=== PATIENT | male | born 1990 | race American Indian/Alaskan Native ===

== ENCOUNTER 2017-03-09 13:47 | Emergency (ER) | payer BC ==
[2017-03-09 13:57] VITALS: BMI 27.9
[2017-03-09 14:00] VITALS: TEMP 99.9; O2SAT 97
[2017-03-09] MEDS ORDERED: Sodium Chloride 0.9% 1,000 ML IV STA (14:22)
--- NOTE | 2017-03-09 14:34 | ED PDOC ---
Arrival/HPI - General Historian: Patient - History of Present Illness Time/Duration: < week Symptom Onset: Sudden Context: Walking - General Chief Complaint: Dizziness/Lightheaded Time Seen by Provider: 03/09/17 13:56 - History of Present Illness Narrative History of Present Illness (Text): 03/09/17 14:27 26 yo M w no significant past medical history presents with complaint of intermittent weakness and dizziness x 1 week. Patient states dizziness is usually sudden-onset exacerbated by walking and head movement. Patient admits to frontal pressure-like headache, pre-syncope 2 days ago x 1, no recurrence. patient states he has not been drinking well for the past 2 days because he is "not feeling well." Patient denies CP, SOB, MADERA, abd pain, n/v/d/c, fevers, chills. ([place]) Past Medical History - Provider Review Nursing Documentation Reviewed: Yes - Travel History Have you recently traveled outside [place] w/in the past 3 mons?: No - Past History Past History: No Previous - Infectious Disease Hx of Infectious Diseases: None - Tetanus Immunization Tetanus Immunization: Unknown - Past Medical History Past Medical History: No Previous - Psychiatric Hx Depression: No Hx Emotional Abuse: No Hx Physical Abuse: No Hx Substance Use: No - Past Surgical History Past Surgical History: No Previous - Suicidal Assessment Feels Threatened In Home Enviroment: No Family/Social History - Physician Review Nursing Documentation Reviewed: Yes Family/Social History: Unknown Family HX Smoking Status: Never Smoked Hx Alcohol Use: No Hx Substance Use: No Hx Substance Use Treatment: No Allergies/Home Meds Allergies/Adverse Reactions: Allergies No Known Allergies Allergy (Verified 03/09/17 13:57) Review of Systems - Review of Systems Constitutional: absent: Fatigue, Fevers, Night Sweats Eyes: absent: Vision Changes ENT: absent: Tinnitus Respiratory: Cough (nonproductive). absent: SOB, Sputum Cardiovascular: absent: Chest Pain, Palpitations, Calf Pain Gastrointestinal: absent: Abdominal Pain, Constipation, Diarrhea, Nausea, Vomiting, Appetite Changes, Hematochezia, Hematemesis Genitourinary Male: absent: Dysuria Skin: absent: Skin Lesions Neurological: Headache (frontal), Dizziness. absent: Gait Changes, Seizure Physical Exam Vital Signs Reviewed: Yes Temperature: Afebrile Blood Pressure: Normal Pulse: Regular Respiratory Rate: Normal Appearance: Positive for: Well-Appearing, Non-Toxic, Comfortable Pain Distress: None Mental Status: Positive for: Alert and Oriented X 3 Finger Stick Blood Glucose: 88 - Systems Exam Head: Present: Atraumatic, Normocephalic Pupils: Present: PERRL. No: Sluggish Extroacular Muscles: No: Gaze Palsy Conjunctiva: No: Injected Ears: Present: Normal, NORMAL TM. No: Erythema, TM Bulging, Fluid Mouth: Present: Moist Mucous Membranes Nose (Internal): Present: Boggy Neck: Present: Normal Range of Motion. No: Meningeal Signs, JVD Respiratory/Chest: Present: Clear to Auscultation, Good Air Exchange. No: Respiratory Distress, Accessory Muscle Use Cardiovascular: Present: Regular Rate and Rhythm, Normal S1, S2. No: Murmurs Abdomen: Present: Normal Bowel Sounds. No: Tenderness, Distention, Peritoneal Signs Upper Extremity: Present: Normal Inspection, NORMAL PULSES, Capillary Refill < 2s. No: Cyanosis, Edema Lower Extremity: Present: Normal Inspection, NORMAL PULSES, Capillary Refill < 2 s. No: Edema, CALF TENDERNESS Neurological: Present: GCS=15, CN II-XII Intact, Speech Normal Skin: Present: Warm, Dry, Rashes, Normal Color Psychiatric: Present: Alert, Oriented x 3, Normal Insight, Normal Concentration Vital Signs Temp Pulse Resp BP Pulse Ox 03/09/17 15:37 79 18 113/69 97 03/09/17 13:57 99.9 F H 89 16 115/71 97 Medical Decision Making Reassessment Condition: Re-examined, Improved - Lab Interpretations I have reviewed the lab results: Yes Interpretation: All labs normal - RAD Interpretation Mail Sorter: Radiologist - EKG Interpretation Interpreted by ED Physician: Yes Type: 12 lead EKG ED Course and Treatment: 03/09/17 15:26 Patient seen and examined with resident Came up with treatment and disposition plan with resident Patient with lightheadedness, near syncopal sensation, dizziness. Patient states that he feels dehydrated and his symptoms usually come on with hot outside. On physical examination patient has no acute findings, no focal neurological deficits, hints exam negative. (Wallace Sparrow) 03/09/17 14:38 26 yo M w no significant past medical history presents complaining of intermittent weakness and dizziness while walking and moving head. Labs, EKG, CT head. Devinne, NS 1L bolus. 03/09/17 15:54 Patient re-evaluated, states he feels significantly better. Denies dizziness, headache, states he feels well. Patient is comfortable laying in bed, in no distress. Patient can stand from seated position without dizziness, weakness. Ambulating without difficulty, denying dizziness, weakness. 03/09/17 16:07 CT head Radiologist read - normal CT head. 03/09/17 17:18 Patient re-evaluated. Denies any residual symptoms. Discussed clinical diagnosis and all questions answered. Instructed to followup with PMD or [facility] clinic, cardiology, neurology and ENT. Patient is agreeable and expresses understanding. ([place]) - Lab Interpretations Lab Results: 03/09/17 14:23 03/09/17 14:23 Lab Results 03/09/17 14:23: WBC 5.2, RBC 4.71, Hgb 14.7, Hct 41.9 L, MCV 89.0, MCH 31.2, MCHC 35.1, RDW 12.4, Plt Count 205, MPV 12.1 H, Gran % 47.0 L, Lymph % (Auto) 38.5 H, [place] % (Auto) 10.9 H, Eos % (Auto) 3.2, Baso % (Auto) 0.4, Gran # 2.46, Lymph # 2.0, [place] # 0.6, Eos # 0.2, Baso # 0.02, Sodium 136, Potassium 4.2, Chloride 97 L, Carbon Dioxide 29, Anion Gap 14, BUN 13, Creatinine 1.2, Est GFR ( Amer) > 60, Est GFR (Non-Af Amer) > 60, Random Glucose 82, Calcium 9.7 , Total Bilirubin 0.8, AST 32, ALT 37, Alkaline Phosphatase 63, Total Protein 8.3, Albumin 4.6, Globulin 3.8, Albumin/Globulin Ratio 1.2 - RAD Interpretation Narrative RAD Interpretations (Text): 03/09/17 16:07 CT head without contrast - normal ([place]) Radiology Orders: 03/09/17 14:22 HEAD W/O CONTRAST [CT] Stat - EKG Interpretation EKG Interpretation (Text): 03/09/17 16:08 NSR 72bpm, normal axis, normal EKG ([place]) - Medication Orders Current Medication Orders: Discontinued Medications Sodium Chloride (Sodium Chloride 0.9%) 1,000 mls @ 999 mls/hr IV .Q1H1M STA Stop: 03/09/17 15:22 Last Admin: 03/09/17 14:29 Dose: 999 MLS/HR eMAR Start Stop Document 03/09/17 14:29 SE (Rec: 03/09/17 14:29 SE [id number]) Intravenous Solution Start Date 03/09/17 Start Time 14:29 Meclizine HCl (Antivert) 25 mg PO STAT STA Stop: 03/09/17 14:23 Last Admin: 03/09/17 14:31 Dose: 25 MG Disposition/Present on Arrival - Present on Arrival Any Indicators Present on Arrival: No History of DVT/PE: No History of Uncontrolled Diabetes: No Urinary Catheter: No History of Decub. Ulcer: No History Surgical Site Infection Following: None - Disposition Have Diagnosis and Disposition been Completed?: Yes Disposition Time: 16:09 Patient Plan: Discharge - Disposition Diagnosis: Vertigo, Dizziness Disposition: HOME/ ROUTINE Condition: STABLE Discharge Instructions (ExitCare): Vertigo (ED), Dizziness (ED) Additional Instructions: Please followup with your primary care physician or the [facility] clinic within 1-3 days. Please followup with Cardiology (Dr. Hollins or Taryn), neurology (Dr. Arnie Sorensen), and ear/nose/throat specialist (Dr. Xavier) within 3 days. Prescriptions: Meclizine [Meclizine*] 25 mg PO Q8 #15 tab Referrals: PCP,ANDREW [Primary Care Provider] - Follow up with [place] [facility] [place] - Follow up with primary Ludin Hollins MD [Staff Provider] - Follow up with primary Rebel Centeno MD [Staff Provider] - Follow up with primary Arnie Sorensen MD [Staff Provider] - Follow up with primary Clemente Xavier DO [Staff Provider] - Follow up with primary
[2017-03-09 14:41] LABS: ADD MANUAL DIFF? NO
[2017-03-09 14:46] LABS: BASO # 0.02 K/mm3 (0.0-2.0); BASO % 0.4 % (0.0-3.0); EOS # 0.2 (0.0-0.7); EOS % 3.2 % (1.5-5.0); GRAN # 2.46 (1.4-6.5); HEMATOCRIT 41.9 % (42.0-52.0); LYMPH % 38.5 % (22.0-35.0); MEAN CORPUSCULAR HEMOGLOBIN 31.2 pg (25.0-35.0); MEAN CORPUSCULAR HGB CONC 35.1 g/dl (31.0-37.0); MEAN PLATELET VOLUME 12.1 fl (7.0-11.0); MONO # 0.6 (0.1-0.6); MONO % 10.9 % (1.0-6.0); PLATELET COUNT 205 10^3/uL (120.0-450.0); RED CELL DISTRIBUTION WIDTH 12.4 % (11.5-14.5); WHITE BLOOD COUNT 5.2 10^3/ul (4.5-11.0)
[2017-03-09 14:53] LABS: ALB/GLOB RATIO 1.2 (1.1-1.8); ALKALINE PHOSPHATASE 63 U/L (38-133); ALT/SGPT 37 U/L (7-56); AST/SGOT 32 U/L (15-59); BILIRUBIN,TOTAL 0.8 mg/dL (0.2-1.3); BLOOD UREA NITROGEN 13 mg/dL (7-21); CALCIUM 9.7 mg/dL (8.4-10.5); CARBON DIOXIDE 29 mmol/L (21-33); CHLORIDE 97 mmol/L (98-107); GFR AFRICAN-AMERICAN > 60; GLUCOSE,RANDOM 82 mg/dL (70-110); POTASSIUM 4.2 mmol/L (3.6-5.0); SODIUM 136 mmol/L (132-148); TOTAL PROTEIN 8.3 g/dL (5.8-8.3)
[2017-03-09 15:37] VITALS: BP 113/69; PULSE 79; RESP 18
--- NOTE | 2017-03-09 15:38 | CT ---
PROCEDURE: CT HEAD WITHOUT CONTRAST. HISTORY: r/o mass COMPARISON: None available. TECHNIQUE: Axial computed tomography images were obtained through the head/brain without intravenous contrast. Radiation dose: Total exam DLP = 768 mGy-cm. This CT exam was performed using one or more of the following dose reduction techniques: Automated exposure control, adjustment of the mA and/or kV according to patient size, and/or use of iterative reconstruction technique. FINDINGS: HEMORRHAGE: No intracranial hemorrhage. BRAIN: No mass effect or edema. No atrophy or chronic microvascular ischemic changes. VENTRICLES: Unremarkable. No hydrocephalus. CALVARIUM: Unremarkable. PARANASAL SINUSES: Unremarkable as visualized. No significant inflammatory changes. MASTOID AIR CELLS: Unremarkable as visualized. No inflammatory changes. OTHER FINDINGS: None. IMPRESSION: Normal CT of the Head.
--- NOTE | 2017-03-10 11:14 | CARD ---
APPROVED REPORT EKG Measurement Heart [id number] <Conclusion> Normal sinus rhythm Normal ECG
== END 2017-03-09 17:08 | disposition home or self-care (01) ==
LOC: ED 13:47
DX: R42 Dizziness and giddiness (principal)
CPT/HCPCS: 70450; 80053; 85025; 93005; 99285; J7040

== ENCOUNTER 2017-06-12 11:01 | Emergency (ER) | payer BC ==
[2017-06-12 11:01] VITALS: BMI 27.9
[2017-06-12 11:07] VITALS: RESP 18
--- NOTE | 2017-06-12 11:23 | ED PDOC ---
Arrival/HPI - General Chief Complaint: GI Problem Time Seen by Provider: 06/12/17 11:02 Historian: Patient - History of Present Illness Narrative History of Present Illness (Text): 06/12/17 11:13 A 26 year old male, with no significant past medical history, is presenting to the emergency department with complaints of vomiting since 02:00 am this morning. The patient notes he has had 5 episodes of vomiting and denies any blood in vomit. The patient denies any diarrhea, fever, chills, abdominal pain, dysuria, or any other complaints at this time. PMD: Ramos Time/Duration: Other (02:00 am this morning) Symptom Onset: Sudden Symptom Course: Unchanged Activities at Onset: Rest Context: Home Past Medical History - Provider Review Nursing Documentation Reviewed: Yes - Past History Past History: No Previous - Infectious Disease Hx of Infectious Diseases: None - Tetanus Immunization Tetanus Immunization: Unknown - Past Medical History Past Medical History: No Previous - Psychiatric Hx Depression: No Hx Emotional Abuse: No Hx Physical Abuse: No Hx Substance Use: No - Past Surgical History Past Surgical History: No Previous - Suicidal Assessment Feels Threatened In Home Enviroment: No Family/Social History - Physician Review Nursing Documentation Reviewed: Yes Family/Social History: Unknown Family HX Smoking Status: Never Smoked Hx Alcohol Use: No Hx Substance Use: No Hx Substance Use Treatment: No Allergies/Home Meds Allergies/Adverse Reactions: Allergies No Known Allergies Allergy (Verified 06/12/17 11:07) Review of Systems - Physician Review All systems were reviewed & negative as marked: Yes - Review of Systems Constitutional: absent: Fevers Gastrointestinal: Nausea, Vomiting. absent: Diarrhea Genitourinary Male: absent: Dysuria Physical Exam - Physical Exam Narrative Physical Exam (Text): 06/12/17 11:13 Constitutional: No acute distress. Head: Normocephalic. Atraumatic. Eyes: PERRL. ENT: Moist mucous membranes. Neck: Supple. Cardiovascular: Regular rate. Chest: No tenderness. Respiratory: Clear to auscultation bilaterally. GI: Soft. Nontender. Nondistended. Back: No CVA tenderness. Musculoskeletal: No tenderness or swelling of extremities. Skin: No rash. Neurologic: Alert, no focal deficit. Vital Signs Reviewed: Yes Vital Signs Temp Pulse Resp BP Pulse Ox 06/12/17 11:05 98.2 F 76 18 124/74 97 Temperature: Afebrile Blood Pressure: Normal Pulse: Regular Respiratory Rate: Normal Appearance: Positive for: Well-Appearing, Non-Toxic, Comfortable Pain Distress: None Mental Status: Positive for: Alert and Oriented X 3 Medical Decision Making ED Course and Treatment: 06/12/17 11:13 Impression: 26 year old male with complaints of vomiting without abdominal pain or tenderness, normal vital signs, and well in appearance. Plan: -- Zofran -- Reassess and disposition Prior Visits: Notes and results from previous visits were reviewed. On 03/09/17 patient came in complaining of weakness and dizziness. Patient was discharged 03/09/17. Progress Notes: Patient with no vomiting episodes in ER. PO challenged. Patient states he can follow up with PMD this week. Instructed to return to the ER for worsening pain , fever, intractible vomiting, or any other problem. - Medication Orders Current Medication Orders: Discontinued Medications Ondansetron HCl (Zofran Odt) 8 mg PO STAT STA Stop: 06/12/17 11:19 Last Admin: 06/12/17 11:48 Dose: 8 mg - Scribe Statement The provider has reviewed the documentation as recorded by the Frank Sanchez Provider Scribe Attestation: All medical record entries made by the Frank were at my direction and personally dictated by me. I have reviewed the chart and agree that the record accurately reflects my personal performance of the history, physical exam, medical decision making, and the department course for this patient. I have also personally directed, reviewed, and agree with the discharge instructions and disposition. Disposition/Present on Arrival - Present on Arrival Any Indicators Present on Arrival: No History of DVT/PE: No History of Uncontrolled Diabetes: No Urinary Catheter: No History of Decub. Ulcer: No History Surgical Site Infection Following: None - Disposition Have Diagnosis and Disposition been Completed?: Yes Diagnosis: Vomiting Disposition: HOME/ ROUTINE Disposition Time: 13:12 Patient Plan: Discharge Patient Problems: Current Active Problems Problem Status Onset Vomiting Acute Condition: STABLE Discharge Instructions (ExitCare): Acute Nausea and Vomiting (ED) Prescriptions: Ondansetron ODT [Zofran ODT] 4 mg PO Q8 #12 odt Referrals: Flavia Ramos DO [Primary Care Provider] - Follow up with primary Forms: WORK NOTE
[2017-06-12 13:23] VITALS: BP 117/76; PULSE 78; TEMP 98; O2SAT 99
== END 2017-06-12 13:24 | disposition home or self-care (01) ==
LOC: ED 11:01
DX: R11.10 Vomiting, unspecified (principal)

== ENCOUNTER 2017-07-09 16:31 | Emergency (ER) | payer BC ==
[2017-07-09 16:31] VITALS: BMI 27.9
[2017-07-09 16:40] VITALS: BP 124/73; PULSE 92; RESP 16; TEMP 99.5; O2SAT 99
[2017-07-09] MEDS ORDERED: Sodium Chloride 0.9% 1,000 ML IV STA (17:00)
--- NOTE | 2017-07-09 17:04 | ED PDOC ---
Arrival/HPI - General Chief Complaint: Abdominal Pain Time Seen by Provider: 07/09/17 16:40 Historian: Patient - History of Present Illness Narrative History of Present Illness (Text): 07/09/17 17:01 27-year-old male presents today with a 6 day history of intermittent abdominal pain and frequent watery diarrhea. Patient denies any recent travel. Denies any sick contacts. Denies nausea or vomiting. Denies fevers or chills. Denies urinary symptoms. Denies dizziness or weakness. Denies back pain. Denies chest pain or shortness of breath. Patient complaining of intermittent crampy abdominal pain. Patient states about a month ago he had nausea which resolved on its own. Time/Duration: Other (6 days) Symptom Onset: Gradual Symptom Course: Worsening Quality: Cramping Severity Level: 2 Past Medical History - Provider Review Nursing Documentation Reviewed: Yes - Travel History Have you recently traveled outside [place] w/in the past 3 mons?: No - Past History Past History: No Previous - Infectious Disease Hx of Infectious Diseases: None - Tetanus Immunization Tetanus Immunization: Unknown - Past Medical History Past Medical History: No Previous - Psychiatric Hx Depression: No Hx Emotional Abuse: No Hx Physical Abuse: No Hx Substance Use: No - Past Surgical History Past Surgical History: No Previous - Suicidal Assessment Feels Threatened In Home Enviroment: No Family/Social History - Physician Review Nursing Documentation Reviewed: Yes Family/Social History: Unknown Family HX Smoking Status: Never Smoked Hx Alcohol Use: No Hx Substance Use: No Hx Substance Use Treatment: No Allergies/Home Meds Allergies/Adverse Reactions: Allergies No Known Allergies Allergy (Verified 07/09/17 16:40) Home Medications: Home Meds Medication Instructions Recorded Confirmed No Known Home Med 07/09/17 07/09/17 Review of Systems - Review of Systems Constitutional: absent: Fatigue, Fevers Respiratory: absent: SOB, Cough Cardiovascular: absent: Chest Pain, Palpitations Gastrointestinal: Abdominal Pain, Diarrhea. absent: Nausea, Vomiting, Hematochezia, Hematemesis Genitourinary Male: absent: Dysuria, Frequency, Hematuria Musculoskeletal: absent: Arthralgias, Back Pain, Neck Pain Skin: absent: Rash, Pruritis Neurological: absent: Headache, Dizziness Psychiatric: absent: Anxiety, Depression Physical Exam Vital Signs Reviewed: Yes Vital Signs Temp Pulse Resp BP Pulse Ox 08/12/17 16:38 99.5 F 92 H 16 124/73 99 Temperature: Afebrile Blood Pressure: Normal Pulse: Regular Respiratory Rate: Normal Appearance: Positive for: Well-Appearing, Non-Toxic, Comfortable Pain Distress: None Mental Status: Positive for: Alert and Oriented X 3 - Systems Exam Head: Present: Atraumatic Mouth: Present: Moist Mucous Membranes Neck: Present: Normal Range of Motion Respiratory/Chest: Present: Clear to Auscultation Cardiovascular: Present: Regular Rate and Rhythm Abdomen: Present: Tenderness (minimal tenderness), Normal Bowel Sounds. No: Distention, Peritoneal Signs, Rebound, Guarding Upper Extremity: Present: Normal Inspection Lower Extremity: Present: Normal ROM Neurological: Present: GCS=15 Skin: Present: Warm, Dry, Normal Color. No: Rashes Psychiatric: Present: Alert, Oriented x 3 Medical Decision Making ED Course and Treatment: 07/09/17 17:03 Patient is nontoxic well appearing with stable vital signs presenting with diarrhea and abdominal pain 6 days NS iv bolus given CBC wnl CMP wnl Lipase wnl Urinalysis trace blood CAT scan: FINDINGS: Lower thorax: No acute findings. ABDOMEN: Liver: Unremarkable. No mass. Gallbladder and bile ducts: The gallbladder is contracted but otherwise normal. Pancreas: Unremarkable. No mass. No ductal dilation. Spleen: Unremarkable. No splenomegaly. Adrenals: Unremarkable. No mass. Kidneys and ureters: A simple cyst is identified in the patient's right kidney. Kidneys otherwise show no significant abnormalities. No hydronephrosis. Stomach and bowel: Slightly prominent fluid-filled loops of small and large intestine are identified without a clear transition area without significant dilatation. No mucosal thickening. Appendix: A normal appendix is identified. PELVIS: Bladder: Unremarkable. No mass. Reproductive: Unremarkable as visualized. ABDOMEN and PELVIS: Intraperitoneal space: Unremarkable. No free air. No significant fluid collection. Bones/joints: No acute fracture. No dislocation. Soft tissues: Unremarkable. Vasculature: Unremarkable. No abdominal aortic aneurysm. Lymph nodes: Unremarkable. No enlarged lymph nodes. IMPRESSION: Nonspecific fluid-filled bowel loops without a clear transition, possibly related to gastroenteritis, or a diarrheal-type illness. Please correlate clinically. No evidence for bowel herniation, bowel obstruction, colitis, appendicitis or diverticulitis. No gross ureteral stone or obstructive uropathy is visualized. Simple right renal cyst. Patient reassessment: pt in no distress. wants to go home. pt with GI symptoms x 6 days. will collect stool cultures. will d/c home with BRAT diet. Discussed all results with patient in depth. pt non toxic well appearing. no distress. stable vitals. Patient verbalizes understanding of discharge instructions and need for immediate followup. all aspects of this case were discussed the attending of record. Impression: Abdominal pain, diarrhea increase fluids BRAT DIET: Bananas, rice, apples, toast Follow up with the primary care physician within the next 2 days Follow up with the GI doctor within the next 2 days. return if symptoms worsen,persist or if new symptoms develop. - Lab Interpretations Lab Results: 07/09/17 17:15 07/09/17 17:15 Lab Results 07/09/17 17:15: WBC 7.5 D, RBC 4.92, Hgb 15.2, Hct 43.5, MCV 88.4, MCH 30.9, MCHC 34.9, RDW 12.5, Plt Count 227, MPV 11.2 H, Gran % 76.2 H, Lymph % (Auto) 15.7 L, [place] % (Auto) 5.3, Eos % (Auto) 2.7, Baso % (Auto) 0.1, Gran # 5.72, Lymph # 1.2, [place] # 0.4, Eos # 0.2, Baso # 0.01 07/09/17 17:15: Sodium 141, Potassium 4.1, Chloride 100, Carbon Dioxide 26, Anion Gap 19, BUN 13, Creatinine 1.1, Est GFR ( Amer) > 60, Est GFR (Non- Af Amer) > 60, Random Glucose 73, Calcium 10.0, Total Bilirubin 1.0, AST 29, ALT 30, Alkaline Phosphatase 72, Total Protein 8.4 H, Albumin 5.2 H, Globulin 3.3, Albumin/Globulin Ratio 1.6, Lipase 57 07/09/17 17:15: Urine Color Yellow, Urine Appearance Clear, Urine pH 6.0, Ur Specific [place] 1.025, Urine Protein Negative, Urine Glucose (UA) Negative, Urine Ketones Negative, Urine Blood Trace-intact H, Urine Nitrate Negative, Urine Bilirubin Negative, Urine Urobilinogen 0.2, Ur Leukocyte Esterase Negative , Urine RBC 1 - 3, Urine WBC 1 - 3, Ur Epithelial Cells 0 - 2 - RAD Interpretation Radiology Orders: 07/09/17 17:00 ABD & PELVIS IV CONTRAST ONLY [CT] Stat - Medication Orders Current Medication Orders: Discontinued Medications Sodium Chloride (Sodium Chloride 0.9%) 1,000 mls @ 999 mls/hr IV .Q1H1M STA Stop: 07/09/17 18:00 Last Admin: 07/09/17 17:17 Dose: 999 mls/hr Iohexol (Omnipaque 350 100 Ml) Confirm Administered Dose 350 mg .ROUTE .STK-MED ONE Stop: 07/09/17 18:04 Disposition/Present on Arrival - Present on Arrival Any Indicators Present on Arrival: No History of DVT/PE: No History of Uncontrolled Diabetes: No Urinary Catheter: No History of Decub. Ulcer: No History Surgical Site Infection Following: None - Disposition Have Diagnosis and Disposition been Completed?: Yes Diagnosis: Abdominal pain, Diarrhea Disposition: HOME/ ROUTINE Disposition Time: 19:43 Patient Plan: Discharge Condition: GOOD Discharge Instructions (ExitCare): Acute Diarrhea (ED), Acute Abdominal Pain ( ED) Additional Instructions: increase fluids BRAT DIET: Bananas, rice, apples, toast Follow up with the primary care physician within the next 2 days Follow up with the GI doctor within the next 2 days. return if symptoms worsen,persist or if new symptoms develop. Referrals: Betito Plummer MD [Staff Provider] - Follow up with primary Flavia Ramos DO [Family Provider] - Follow up with primary Forms: [facility] (Ukrainian), WORK NOTE
[2017-07-09 17:37] LABS: ALB/GLOB RATIO 1.6 (1.1-1.8); ALBUMIN 5.2 g/dL (3.0-4.8); ALT/SGPT 30 U/L (7-56); AST/SGOT 29 U/L (15-59); BLOOD UREA NITROGEN 13 mg/dL (7-21); GFR AFRICAN-AMERICAN > 60; GFR NON-AFRICAN AMERICAN > 60; LIPASE 57 U/L (23-300)
[2017-07-09 17:49] LABS: BASO # 0.01 K/mm3 (0.0-2.0); BASO % 0.1 % (0.0-3.0); EOS # 0.2 (0.0-0.7); EOS % 2.7 % (1.5-5.0); GRAN # 5.72 (1.4-6.5); GRAN % 76.2 % (50.0-68.0); HEMOGLOBIN 15.2 g/dL (14.0-18.0); LYMPH # 1.2 (1.2-3.4); LYMPH % 15.7 % (22.0-35.0); MEAN CELL VOLUME 88.4 fl (80.0-105.0); MEAN CORPUSCULAR HEMOGLOBIN 30.9 pg (25.0-35.0); MEAN CORPUSCULAR HGB CONC 34.9 g/dl (31.0-37.0); MEAN PLATELET VOLUME 11.2 fl (7.0-11.0); MONO # 0.4 (0.1-0.6); MONO % 5.3 % (1.0-6.0); PLATELET COUNT 227 10^3/uL (120.0-450.0); RBC 4.92 10^6/uL (3.5-6.1); RED CELL DISTRIBUTION WIDTH 12.5 % (11.5-14.5); URINE BILIRUBIN NEGATIVE (NEGATIVE); URINE BLOOD TRACE-INTACT (NEGATIVE); URINE GLUCOSE (UA) NEGATIVE (NEGATIVE); URINE LEUKOCYTE ESTERASE NEGATIVE Leu/uL (NEGATIVE); URINE NITRATE NEGATIVE (NEGATIVE); URINE PROTEIN NEGATIVE mg/dL (<30 mg/dL); URINE UROBILINOGEN 0.2 E.U./dL (<1 E.U./dL); WHITE BLOOD COUNT 7.5 10^3/ul (4.5-11.0)
[2017-07-09] MEDS ORDERED: Iohexol 350 MG/100 ML VIAL ONE (18:03)
[2017-07-09 18:04] LABS: URINE APPEARANCE CLEAR (CLEAR); URINE COLOR YELLOW (YELLOW)
[2017-07-09 19:02] LABS: URINE EPITHELIAL CELLS 0 - 2 /hpf (0-5)
--- NOTE | 2017-07-10 10:59 | CT ---
PROCEDURE: CT Abdomen and Pelvis with contrast HISTORY: abd pain/diarrhea COMPARISON: None. TECHNIQUE: Contrast dose: 95 cc Omnipaque 350. Radiation dose: Total exam DLP = 447.14 mGy-cm. This CT exam was performed using one or more of the following dose reduction techniques: Automated exposure control, adjustment of the mA and/or kV according to patient size, and/or use of iterative reconstruction technique. FINDINGS: LOWER THORAX: Unremarkable. LIVER: Hepatomegaly. Hepatic steatosis. No focal masses. No intrahepatic bile duct dilatation or perihepatic ascites. GALLBLADDER AND BILE DUCTS: Unremarkable. PANCREAS: Unremarkable. No gross lesion or ductal dilatation. SPLEEN: Unremarkable. ADRENALS: Unremarkable. No mass. KIDNEYS AND URETERS: Unremarkable. No hydronephrosis. No solid mass. Incidental finding(s): Simple cyst midpole region 16 mm. VASCULATURE: Unremarkable. No aortic aneurysm. BOWEL: Unremarkable. No obstruction. No gross mural thickening. APPENDIX: Normal appendix. PERITONEUM: Unremarkable. No free fluid. No free air. LYMPH NODES: Unremarkable. No enlarged lymph nodes. BLADDER: Unremarkable. REPRODUCTIVE: Unremarkable. BONES: No acute fracture. OTHER FINDINGS: None. IMPRESSION: No acute findings related to/accounting for the clinical presentation. Additional benign and/or incidental findings described above. Concordant results (preliminary interpretation) provided by [facility]. Procedure Completed: 18:24. Preliminary ([facility]) Report: Dictated and Authenticated: 19:17 Final Interpretation: 10:57. July 10, 2017.
== END 2017-07-09 19:50 | disposition home or self-care (01) ==
LOC: ED 16:31
DX: R19.7 Diarrhea, unspecified (principal); R10.9 Unspecified abdominal pain
CPT/HCPCS: 74177; 80053; 81001; 83690; 85025; 87045; 87177; 87209; 99284; J7040; Q9967

== ENCOUNTER 2019-01-22 23:36 | Emergency (ER) | payer SELFPAY ==
[2019-01-23 00:01] VITALS: BMI 27.6
[2019-01-23 00:02] VITALS: BP 137/87; PULSE 75; RESP 18; TEMP 97.8; O2SAT 100
--- NOTE | 2019-01-23 01:02 | ED PDOC ---
Arrival/HPI - General Chief Complaint: Lower Extremity Problem/Injury Time Seen by Provider: 01/23/19 00:18 Historian: Patient - History of Present Illness Narrative History of Present Illness (Text): 01/23/19 00:59 28 year old male, with no significant past medical history, presents to the emergency department complaining of discomfort to the posterior left knee and leg. Patient informs pain feels like tightness in the area. Patient denies any history of swelling. Patient denies any blunt trauma to the area. Patient states where he works he does run errands all the time, running and climbing stairs. Patient thinks this may have contributed to his symptoms. Patient is able to ambulate without difficulty.States the symptoms have improved with resting and refraining from work chores. Patient denies any fevers, chills, headache, dizziness, chest pain, shortness of breath, dyspnea on exertion, cough, abdominal pain, nausea, vomiting, diarrhea, back pain, neck pain, or any other complaint. Time/Duration: Prior to Arrival Symptom Onset: Gradual Symptom Course: Unchanged Quality: Tightness Activities at Onset: Light Context: Walking, Work Past Medical History - Provider Review Nursing Documentation Reviewed: Yes - Past History Past History: No Previous - Infectious Disease Hx of Infectious Diseases: None - Tetanus Immunization Tetanus Immunization: Unknown - Past Medical History Past Medical History: No Previous - Psychiatric Hx Depression: No Hx Emotional Abuse: No Hx Physical Abuse: No Hx Substance Use: No - Past Surgical History Past Surgical History: No Previous - Anesthesia Hx Anesthesia: No - Suicidal Assessment Feels Threatened In Home Enviroment: No Family/Social History - Physician Review Nursing Documentation Reviewed: Yes Family/Social History: No Known Family HX Smoking Status: Never Smoked Hx Alcohol Use: No Hx Substance Use: No Hx Substance Use Treatment: No Allergies/Home Meds Allergies/Adverse Reactions: Allergies No Known Allergies Allergy (Verified 07/09/17 16:40) Home Medications: Home Meds Medication Instructions Recorded Confirmed No Known Home Med 07/09/17 07/09/17 Review of Systems - Physician Review All systems were reviewed & negative as marked: Yes - Review of Systems Constitutional: absent: Fevers, Night Sweats Respiratory: absent: SOB, Cough Cardiovascular: absent: Chest Pain Gastrointestinal: absent: Abdominal Pain, Diarrhea, Nausea, Vomiting Musculoskeletal: Arthralgias (Left knee), Myalgias (Left leg pain). absent: Back Pain, Neck Pain Neurological: absent: Headache, Dizziness Physical Exam Vital Signs Reviewed: Yes Vital Signs Temp Pulse Resp BP Pulse Ox 01/23/19 00:01 97.8 F 75 18 137/87 100 Temperature: Afebrile Blood Pressure: Normal Pulse: Regular Respiratory Rate: Normal Appearance: Positive for: Well-Appearing, Non-Toxic, Comfortable Pain Distress: None Mental Status: Positive for: Alert and Oriented X 3 - Systems Exam Head: Present: Atraumatic, Normocephalic Pupils: Present: PERRL Extroacular Muscles: Present: EOMI Conjunctiva: Present: Normal Mouth: Present: Moist Mucous Membranes Neck: Present: Normal Range of Motion Respiratory/Chest: Present: Clear to Auscultation, Good Air Exchange. No: Respiratory Distress, Accessory Muscle Use Cardiovascular: Present: Regular Rate and Rhythm, Normal S1, S2. No: Murmurs Abdomen: No: Tenderness, Distention, Peritoneal Signs Back: Present: Normal Inspection Upper Extremity: Present: Normal Inspection. No: Cyanosis, Edema Lower Extremity: Present: Normal ROM, Neurovascularly Intact, Other (Some discomfort to the posterior left knee with flexion). No: CALF TENDERNESS, Kiera's Sign, Swelling Neurological: Present: GCS=15, CN II-XII Intact, Speech Normal Skin: Present: Warm, Dry, Normal Color. No: Rashes Psychiatric: Present: Alert, Oriented x 3, Normal Insight, Normal Concentration Medical Decision Making ED Course and Treatment: 01/23/19 01:05 Impression: 28 year male presents with left knee pain Plan: -- X-ray LLE -- US LLE -- Reassess and disposition Prior Visits: Notes and results from previous visits were reviewed. Progress Notes: - RAD Interpretation Narrative RAD Interpretations (Text): 01/23/19 02:28 Knee x-ray- No acute process Lower extremity U/S- no DVT Radiology Orders: 01/23/19 00:22 KNEE WITH PATELLA LEFT 3 VIEW [RAD] Stat 01/23/19 00:26 DUPLEX LOWER EXTRM VEIN LEFT [US] Stat Plant Senior Manager: ED Physician - Scribe Statement The provider has reviewed the documentation as recorded by the Daphnieibe Ludin Bolden Provider Scribe Attestation: All medical record entries made by the Scribe were at my direction and personally dictated by me. I have reviewed the chart and agree that the record accurately reflects my personal performance of the history, physical exam, medical decision making, and the department course for this patient. I have also personally directed, reviewed, and agree with the discharge instructions and disposition. Disposition/Present on Arrival - Present on Arrival Any Indicators Present on Arrival: No History of DVT/PE: No History of Uncontrolled Diabetes: No Urinary Catheter: No History of Decub. Ulcer: No History Surgical Site Infection Following: None - Disposition Have Diagnosis and Disposition been Completed?: Yes Diagnosis: Knee strain Disposition: HOME/ ROUTINE Disposition Time: 02:28 Patient Plan: Discharge Patient Problems: Current Active Problems Problem Status Onset Knee strain Acute Condition: GOOD Discharge Instructions (ExitCare): Muscle Strain (DC) Additional Instructions: Rest the affected area/no strenuous activity/Advil as directed/follow up with your doctor Referrals: [facility] [Outside] - Follow up with primary Forms: [facility] ([place]), WORK NOTE
--- NOTE | 2019-01-23 08:57 | US ---
PROCEDURE: Left lower extremity venous US HISTORY: Leg pain and swelling. Evaluate for DVT. PHYSICIAN(S): Ludin Brown MD. TECHNIQUE: Duplex sonography and color-flow Doppler with graded compression were used to evaluate the deep venous system of the left lower extremity. FINDINGS: The visualized deep venous system of the left lower extremity is sonographically normal and compressible. Normal wave forms and augmentation are seen. There is no sonographic evidence for deep venous thrombosis in the visualized segments of the left lower extremity. IMPRESSION: 1. No sonographic evidence for deep venous thrombosis in the visualized segments of the left lower extremity.
--- NOTE | 2019-01-23 13:38 | RAD ---
Date of service: 01/23/2019 PROCEDURE: Left Knee Radiographs. HISTORY: Pain. COMPARISON: None. FINDINGS: BONES: Normal. No fracture. JOINTS: Normal. No osteoarthritis. JOINT EFFUSION: None. OTHER FINDINGS: None. IMPRESSION: Normal radiographs of the left knee.
== END 2019-01-23 02:40 | disposition home or self-care (01) ==
LOC: ED 23:36
DX: S86.912A Strain of unspecified muscle(s) and tendon(s) at lower leg level, left leg, initial encounter (principal); X58.XXXA Exposure to other specified factors, initial encounter

== ENCOUNTER 2019-02-07 23:01 | Emergency (ER) | payer BC | END 2019-02-08 01:51 | disposition home or self-care (01) | LOC: ED 02-08 01:51 ==